=== PATIENT | male | born 1990 | race Caucasian/White ===

== ENCOUNTER 2016-06-12 16:33 | Emergency (ER) | payer BC ==
[~2016-06-12] VITALS: Ht 190.5 cm; Wt 102.3 kg
[~2016-06-12 16:33] MED LIST: AMOXICILLIN 8751 TAB PO; BACTROBAN15 GM TOP
[2016-06-12 16:37] VITALS: BP 140/95; TEMP 98.9
[2016-06-12] MEDS ORDERED: BACTROBAN 22GM22 GM TP (18:02)
[2016-06-12 18:08] VITALS: PULSE 140
== END 2016-06-12 18:08 | disposition home or self-care (01) ==
LOC: COL.ER 16:33
DX: F15.10 Other stimulant abuse, uncomplicated (principal); R10.84 Generalized abdominal pain; L98.9 Disorder of the skin and subcutaneous tissue, unspecified